=== PATIENT | male | born 1985 | race Hispanic/Latino ===

== ENCOUNTER 2016-10-26 13:17 | Emergency (ER) | payer SELFPAY ==
[2016-10-26] MEDS ORDERED: Proparacaine 0.5% Ophth Soln 15 ML Bottle EYEBOTH SCH (13:45)
--- NOTE | 2016-10-26 14:31 | EDM.PDOC ---
ED HPI EYE COMPLAINT - General Chief Complaint: Eye Problems Stated Complaint: EYE Time Seen by Provider: 10/26/16 14:00 Source: Reports: Patient History Limitations: Reports: No limitations - History of Present Illness INITIAL COMMENTS - FREE TEXT/NARRATIVE: History of present illness: [31-year-old male comes in with with complaints of metal in the eye. This happened while he was working even with protective goggles there was 30 while in our [place] and it blew no particular round and one piece stuck in his eye. ] Review of systems: As per history of present illness and below otherwise all systems reviewed and negative. Past medical history: As per history of present illness and as reviewed below otherwise noncontributory. Surgical history: As per history of present illness and as reviewed below otherwise noncontributory. Social history: No reported history of drug or alcohol abuse. Family history: As per history of present illness and as reviewed below otherwise noncontributory. Physical exam: HEENT: Atraumatic, normocephalic, pupils reactive, negative for conjunctival pallor or scleral icterus, mucous membranes moist, throat clear, neck supple, nontender, trachea midline. Lungs: Clear to auscultation, breath sounds equal bilaterally, chest nontender. Heart: S1S2, regular, negative for clicks, rubs, or JVD. Abdomen: Soft, nondistended, nontender. Negative for masses or hepatosplenomegaly. Negative for costovertebral tenderness. Pelvis: Stable nontender. Genitourinary: Deferred. Rectal: Deferred. Extremities: Atraumatic, negative for cords or calf pain. Neurovascular unremarkable. Neuro: Awake, alert, oriented. Cranial nerves II through XII unremarkable. Cerebellum unremarkable. Motor and sensory unremarkable throughout. Exam nonfocal. Global assessment is benign save as noted above. Patient's left eye is erythematous and on exam with with slit-lamp and nitrazine paper noted to see a small black particulate on inner aspect of ring of left iris. Dr. De Souza at bedside to assist and able to remove easily here in ED will refer to ophthalmology tomorrow. Diagnostics: [Wood Slit-lamp] Therapeutics: [Procainamide for exam] Impression: [Retained foreign body in left eye/metal] Plan: [Followup with ophthalmology tomorrow referral given] Definitive disposition and diagnosis as appropriate pending reevaluation and review of above. - Related Data Allergies/ADRs: Allergies No Known Allergies Allergy (Verified 10/26/16 13:46) Home Meds: Ambulatory Orders Medication Instructions Recorded Confirmed . [No Known Home Meds] 10/26/16 10/26/16 Past Medical History - Past Health History Medical/Surgical History: Denies Medical/Surgical History Social & Family History - Family History Family Medical History: Noncontributory - Tobacco Use Smoking Status *Q: Never Smoker - Caffeine Use Caffeine Use: Reports: None - Recreational Drug Use Recreational Drug Use: No ED ROS GENERAL - Review of Systems Review Of Systems: See Below (See history of present illness) ED EXAM GENERAL W FULL EYE - Physical Exam Exam: See Below (History of present illness) Course - Vital Signs Last Recorded V/S: Last Vital Signs Temp 36.1 C 10/26/16 13:46 Pulse 58 L 10/26/16 13:46 Resp 16 10/26/16 13:46 BP 129/73 10/26/16 13:46 Pulse Ox 95 10/26/16 13:46 - Orders/Labs/Meds Orders: Active Orders 24 hr Category Date Time Status Proparacaine [Proparacaine 0.5% Ophth Soln] Med 10/26/16 13:45 Active 2 ml EYEBOTH ASDIRECTED Medication Orders Proparacaine HCl (Proparacaine 0.5% Ophth Soln) 2 ml EYEBOTH ASDIRECTED STANISLAV Last Admin: 10/26/16 14:00 Dose: 2 ml Meds: Medications Generic Name Dose Route Start Last Admin Trade Name Freq PRN Reason Stop Dose Admin Proparacaine HCl 2 ml 10/26/16 13:45 10/26/16 14:00 Proparacaine 0.5% Ophth Soln EYEBOTH 2 ml ASDIRECTED STANISLAV Administration Departure - Departure Time of Disposition: 14:32 Disposition: Home, Self-Care 01 Condition: good Clinical Impression: Eye foreign body Instructions: Eye Foreign Body, [id number] Forms: ED Department Discharge Additional Instructions: The following information is given to patients seen in the emergency department who are being discharged to home. This information is to outline your options for follow-up care. We provide all patients seen in our emergency department with a follow-up referral. The need for follow-up, as well as the timing and circumstances, are variable depending upon the specifics of your emergency department visit. If you don't have a primary care physician on staff, we will provide you with a referral. We always advise you to contact your personal physician following an emergency department visit to inform them of the circumstance of the visit and for follow-up with them and/or the need for any referrals to a consulting specialist. The emergency department will also refer you to a specialist when appropriate. This referral assures that you have the opportunity for follow-up care with a specialist. All of these measure are taken in an effort to provide you with optimal care, which includes your follow-up. Under all circumstances we always encourage you to contact your private physician who remains a resource for coordinating your care. When calling for follow-up care, please make the office aware that this follow-up is from your recent emergency room visit. If for any reason you are refused follow-up, please contact the [facility] Emergency Department at and asked to speak to the emergency department charge nurse. Take medication as prescribed Followup with ophthalmology tomorrow information provided Return to ED as needed as discussed - My Orders Last 24 Hours: My Active Orders 10/26/16 13:45 Proparacaine [Proparacaine 0.5% Ophth Soln] 2 ml EYEBOTH ASDIRECTED - Assessment/Plan Last 24 Hours: My Active Orders 10/26/16 13:45 Proparacaine [Proparacaine 0.5% Ophth Soln] 2 ml EYEBOTH ASDIRECTED
[2016-10-26 14:57] VITALS: BP 122/74
[2016-10-26] MEDS ORDERED: Diphtheria,Pertussis(Acell),Tetanus Vaccine 0.5 ML Syringe IM ONE (18:24)
== END 2016-10-26 14:54 | disposition home or self-care (01) ==
LOC: MW.ED 13:17
DX: T15.82XA Foreign body in other and multiple parts of external eye, left eye, initial encounter (principal); Z23 Encounter for immunization
CPT/HCPCS: 65205; 90471; 90715; 99283; 99283-25

== ENCOUNTER 2019-08-10 11:20 | Emergency (ER) | payer BC ==
--- NOTE | 2019-08-10 11:52 | EDM.PDOC ---
ED HPI GENERAL MEDICAL PROBLEM - General Chief Complaint: Respiratory Problem Stated Complaint: CHEST PAIN Time Seen by Provider: 08/10/19 11:49 Source of Information: Reports: Patient, Poising Inspector History Limitations: Reports: No Limitations - History of Present Illness INITIAL COMMENTS - FREE TEXT/NARRATIVE: HISTORY AND PHYSICAL: History of present illness: Patient is a 33-year-old belgian speaking male presents to the ED with complaint of cough x 2 days. Patient states he has had cough, subjective fevers at night, and chest pain with coughing. He reports a little shortness of breath. He states he has had nausea but denies vomiting, abdominal pain or diarrhea. He has taken OTC cold medication without relief of symptoms. Denies any recent travel outside the country. He states he has been around sick co- workers. He denies significant past medical history. Review of systems: As per history of present illness and below otherwise all systems reviewed and negative. Past medical history: As per history of present illness and as reviewed below otherwise noncontributory. Surgical history: As per history of present illness and as reviewed below otherwise noncontributory. Social history: No reported history of drug or alcohol abuse. Family history: As per history of present illness and as reviewed below otherwise noncontributory. Physical exam: General: Patient sitting comfortably in no acute distress and nontoxic appearing HEENT: Atraumatic, normocephalic, pupils reactive, negative for conjunctival pallor or scleral icterus, mucous membranes moist, throat clear, neck supple, nontender, trachea midline. No meningeal signs. Lungs: Clear to auscultation, breath sounds equal bilaterally, chest nontender. Heart: S1S2, regular, negative for clicks, rubs, or overt murmur. Abdomen: Soft, nondistended, nontender. Negative for masses or hepatosplenomegaly. Negative for costovertebral tenderness. No rigidity, rebound , guarding. Pelvis: Stable nontender. Genitourinary: Deferred. Rectal: Deferred. Extremities: Atraumatic, negative for cords or calf pain. Neurovascular unremarkable. Neuro: Awake, alert, oriented. Cranial nerves II through XII unremarkable. Cerebellum unremarkable. Motor and sensory unremarkable throughout. Exam nonfocal. Notes: Diagnostics: Influenza, EKG Therapeutics: none Prescriptions: Zaid sauer Impression: Viral URI Plan: Drink plenty of fluids and alternate tylenol and motrin as discussed. You may take tessalon perles as needed for cough Follow up with primary care provider Return to ED as needed as discussed Definitive disposition and diagnosis as appropriate pending reevaluation and review of above. chest Pain Score (Numeric/FACES): 4 - Related Data Allergies Allergy/AdvReac Type Severity Reaction Status Date / Time No Known Allergies Allergy Verified 10/26/16 13:46 Home Meds: Home Meds Benzonatate [Tessalon Perle] 100 mg PO TID #12 capsule 08/10/19 [Rx] Past Medical History - Past Health History Medical/Surgical History: Denies Medical/Surgical History Social & Family History - Family History Family Medical History: Noncontributory - Tobacco Use Smoking Status *Q: Never Smoker - Caffeine Use Caffeine Use: Reports: None - Recreational Drug Use Recreational Drug Use: No ED ROS GENERAL - Review of Systems Review Of Systems: Comprehensive ROS is negative, except as noted in HPI. ED EXAM, GENERAL - Physical Exam Exam: See Below (see dictation) Course - Vital Signs Last Recorded V/S: Last Vital Signs Temp 97.3 F 08/10/19 11:32 Pulse 54 L 08/10/19 12:07 Resp 16 08/10/19 12:07 BP 123/72 08/10/19 12:07 Pulse Ox 98 08/10/19 12:07 - Orders/Labs/Meds Orders: Active Orders 24 hr Category Date Time Status EKG Documentation Completion [RC] STAT Care 08/10/19 11:36 Active CULTURE STREP A CONFIRMATION [] Stat Lab 08/10/19 11:43 Results STREP SCRN A RAPID W CULT CONF [] Stat Lab 08/10/19 11:43 Results Departure - Departure Time of Disposition: 12:34 Disposition: Home, Self-Care 01 Condition: Good Clinical Impression: Viral URI - Discharge Information Prescriptions: Benzonatate [Tessalon Perle] 100 mg PO TID #12 capsule Referrals: PCP,None [Primary Care Provider] - Forms: ED Department Discharge Additional Instructions: The following information is given to patients seen in the emergency department who are being discharged to home. This information is to outline your options for follow-up care. We provide all patients seen in our emergency department with a follow-up referral. The need for follow-up, as well as the timing and circumstances, are variable depending upon the specifics of your emergency department visit. If you don't have a primary care physician on staff, we will provide you with a referral. We always advise you to contact your personal physician following an emergency department visit to inform them of the circumstance of the visit and for follow-up with them and/or the need for any referrals to a consulting specialist. The emergency department will also refer you to a specialist when appropriate. This referral assures that you have the opportunity for follow-up care with a specialist. All of these measure are taken in an effort to provide you with optimal care, which includes your follow-up. Under all circumstances we always encourage you to contact your private physician who remains a resource for coordinating your care. When calling for follow-up care, please make the office aware that this follow-up is from your recent emergency room visit. If for any reason you are refused follow-up, please contact the [facility] Emergency Department at and asked to speak to the emergency department charge nurse. [facility] [address] [place] [address] [place] [address] Drink plenty of fluids and alternate tylenol and motrin as discussed. You may take tessalon perles as needed for cough Follow up with primary care provider Return to ED as needed as discussed Sepsis Event Note - Evaluation Sepsis Screening Result: No Definite Risk - Focused Exam Vital Signs: Vital Signs Temp Pulse Resp BP Pulse Ox 08/10/19 12:07 54 L 16 123/72 98 08/10/19 11:32 97.3 F 76 15 138/82 98 Date Exam was Performed: 08/10/19 Time Exam was Performed: 12:34 - My Orders Last 24 Hours: My Active Orders 08/10/19 11:36 EKG Documentation Completion [RC] STAT 08/10/19 11:43 CULTURE STREP A CONFIRMATION [RM] Stat STREP SCRN A RAPID W CULT CONF [RM] Stat - Assessment/Plan Last 24 Hours: My Active Orders 08/10/19 11:36 EKG Documentation Completion [RC] STAT 08/10/19 11:43 CULTURE STREP A CONFIRMATION [] Stat STREP SCRN A RAPID W CULT CONF [] Stat
[2019-08-10 13:05] VITALS: BP 124/76; PULSE 57
== END 2019-08-10 13:03 | disposition home or self-care (01) ==
LOC: MW.ED 11:20
DX: J06.9 Acute upper respiratory infection, unspecified (principal)
CPT/HCPCS: 87081; 87804; 87880-QW; 93005; 99283; 99285-25